=== PATIENT | male | born 1940 | race Asian ===

== ENCOUNTER 2025-03-16 10:48 | Inpatient (IN) | payer MEDICARE, BC ==
[~2025-03-16] VITALS: Ht 157.5 cm; Wt 66.4 kg
[~2025-03-16 10:48] MED LIST: AMI2 PO; APIX2.5T PO; ATOR10TA69 PO; CETI-259 PO; CLON0.122 PO; DES150 PO; ENTE0.5T11 MT; ENTE0.5T11 PO; FURO80TA3 PO; INSNOV SUBCUT; LEVO88TA7 PO; MELA5TAB3 PO; MIRT-89 PO; MONT-39 PO; MULT-1146 PO; OMEP20CA14 PO; PRED10TA PO; TAMS-54 PO; THIA100T72 PO
[2025-03-16 10:49] VITALS: O2SAT 98
[2025-03-16 11:31] LABS: BASOPHILS % 0.6 % (0.0-2.0); EOSINOPHILS % 1.9 % (0.0-5.0); HEMATOCRIT. 34.5 % (42.0-52.0); HEMOGLOBIN. 11.6 g/dL (14.0-18.0); LYMPHOCYTES % 37.2 % (20.0-50.0); MEAN PLATELET VOLUME 7.2 fl (7.4-10.4); MONOCYTES % 6.0 % (2.0-8.0); NEUTROPHILS % 54.3 % (40.0-76.0); PLATELET 165 x1000/uL (130-400); RED BLOOD CELL COUNT 3.56 mill/uL (4.7-6.1); RED CELL DISTRIBUTION WIDTH 13.6 % (11.6-14.6)
[2025-03-16] MEDS: METOPROLOL TARTRATE 25MG TABLET PO ONE (11:34)
[2025-03-16] MEDS: ASPIRIN 325MG EC TABLET PO ONE (11:34)
[2025-03-16] MEDS: NITROGLYCERIN OINT 1GM/INCH UDPKT TD ONE (11:35)
[2025-03-16 11:49] LABS: TROPONIN I HIGH SENSITIVITY 23 ng/L (3.0-53); UREA NITROGEN BLOOD 19 mg/dL (9-23)
[2025-03-16 11:55] LABS: CREATININE 2.5 mg/dL (0.6-1.3)
[2025-03-16] MEDS ORDERED: NA PHOS,M-B/NA PHOS,DI-BA ENEMA 118ML PR PRN (15:45)
[2025-03-16] MEDS ORDERED: ACETAMINOPHEN 325MG TABLET PO PRN (15:45)
[2025-03-16] MEDS ORDERED: DOCUSATE SODIUM 100MG CAPSULE PO PRN (15:45)
[2025-03-16] MEDS ORDERED: IPRATROPIUM/ALBUTEROL 0.5-3(2.5)MG/3ML NEB HHN PRN (15:45)
[2025-03-16] MEDS ORDERED: ONDANSETRON HCL 4MG/2ML INJ IV PRN (15:45)
[2025-03-16] MEDS ORDERED: GUAIFENESIN 200MG/10ML SUGAR FREE UDC PO PRN (15:45)
[2025-03-16] MEDS ORDERED: CLONIDINE 0.1MG TABLET PO PRN (15:45)
[2025-03-16] MEDS: FUROSEMIDE 40MG/4ML VIAL IVP SCH (16:40)
[2025-03-16] MEDS: ACETAMINOPHEN 325MG TABLET PO PRN (16:40)
[2025-03-16] MEDS: TAMSULOSIN HCL 0.4MG SR CAPSULE PO SCH (16:40)
[2025-03-16 16:48] LABS: BG BASE EXCESS -4.7 mmol/L (-2.0-3.0); BG CARBOXYHEMOGLOBIN 0.5 % (0.5-1.5); BG DEOXYHEMOGLOBIN 1.7 % (0.0-5.0); BG FLOW(L/min) 3.00 L/min; BG FRACTION INSPIRED OXYGEN 32; BG HCO3 ACT 15.0 mmol/L (21.0-28.0); BG METHEMOGLOBIN 0.3 % (0.5-1.5); BG OXYGEN SATURATION 98.3 % (94.0-98.0); BG OXYHEMOGLOBIN 97.5 % (94.0-98.0); BG PCO2 16.9 mmHg (35.0-48.0); BG PH 7.566 (7.350-7.450); BG PO2 107.3 mmHg (83.0-108.0); BG SAMPLE SITE RIGHT RADIAL; BG TOTAL HEMOGLOBIN 12.1 g/dL (13.5-17.5); BG VENT MODE NASAL CANNULA
[2025-03-16] MEDS: HYDROCODONE/ACETAMINOPHEN 5/325MG TABLET PO SCH (17:26)
[2025-03-16 17:29] LABS: FOLIC ACID (FOLATE) SERUM > 20.00 ng/mL (>5.38); VITAMIN B12 SERUM 1013 pg/mL (211-911)
[2025-03-16] MEDS ORDERED: NALOXONE HCL 0.4MG/ML VIAL IV PRN (17:30)
[2025-03-16] MEDS ORDERED: HYDROCODONE/ACETAMINOPHEN 5/325MG TABLET PO PRN (17:30)
[2025-03-16 17:45] VITALS: BP 108/60; PULSE 60; RESP 40; TEMP 36.1956
[2025-03-16 18:00] VITALS: BP 108/60; PULSE 58; RESP 30; TEMP 36.2; O2SAT 98
[2025-03-16 18:02] LABS: HEPATITIS A AB IGM NEGATIVE (Negative)
[2025-03-16 18:03] LABS: HEPATITIS B CORE AB IGM NEGATIVE (Negative); HEPATITIS C AB NON REACTIVE (Neg) (Negative)
[2025-03-16] MEDS: SULFAMETHOXAZOLE/TRIMETHOPRIM 800/160MG TABLET PO SCH (19:40)
[2025-03-16 20:00] VITALS: BP 111/70; PULSE 93; RESP 20; TEMP 36.6; O2SAT 98
[2025-03-16 20:59] LABS: CLARITY URINE CLEAR (CLEAR); COLOR URINE YELLOW (YELLOW); GLUCOSE URINE TRACE (NEGATIVE); KETONES URINE NEGATIVE (NEGATIVE); LEUKOCYTE ESTERASE URINE NEGATIVE (NEGATIVE); NITRITE URINE NEGATIVE (NEGATIVE); OCCULT BLOOD URINE NEGATIVE (NEGATIVE); PH URINE 8.5 (4.5-8.0); PROTEIN URINE 2+ (NEGATIVE); SPECIFIC GRAVITY URINE 1.009 (1.005-1.030); UROBILINOGEN URINE 0.2 E.U./dL (0.2-1.0)
[2025-03-16 21:18] LABS: BACTERIA URINE NONE SEEN; RBC URINE NONE SEEN /hpf (0-2); SQUAMOUS EPITHELIAL CELL URINE RARE /lpf (RARE/1+); WBC URINE NONE SEEN /hpf (0-2)
[2025-03-16 21:21] LABS: SODIUM URINE RANDOM 58 mEq/L
[2025-03-16 21:26] LABS: *AMPHETAMINES SCREEN URINE NEGATIVE (NEGATIVE); *BARBITURATES SCREEN URINE NEGATIVE (NEGATIVE); *BENZODIAZEPINES SCREEN URINE NEGATIVE (NEGATIVE); *COCAINE SCREEN URINE NEGATIVE (NEGATIVE)
[2025-03-16 21:27] LABS: CANNABINOID URINE SCREEN NEGATIVE (NEGATIVE); ECSTASY MDMA SCREEN URINE NEGATIVE (NEGATIVE); METHADONE URINE SCREEN NEGATIVE (NEGATIVE); OPIATES URINE SCREEN NEGATIVE (NEGATIVE); OSMOLALITY URINE 245 mOsm/kg (500-850); PHENCYCLIDINE URINE SCREEN NEGATIVE (NEGATIVE)
[2025-03-16] MEDS: MELATONIN 3MG TABLET PO SCH (21:54)
[2025-03-16] MEDS: TRAZODONE HCL 50MG TABLET PO SCH (21:55)
[2025-03-16] MEDS: APIXABAN 2.5 MG TABLET PO SCH (21:55)
[2025-03-16 22:24] LABS: TROPONIN I HIGH SENSITIVITY 2950 ng/L (3.0-53)
[2025-03-17] VITALS (12 sets, daily range): BP systolic 96–133; BP diastolic 60–74; PULSE 59–81; RESP 18–20; TEMP 36.3–37.2; O2SAT 96–100
[2025-03-17] MEDS: SODIUM CHLORIDE 0.9% 500 ML IV ONE (00:30)
[2025-03-17] MEDS: SODIUM CHLORIDE 0.9% 500 ML IV SCH (00:30)
[2025-03-17] MEDS: HALOPERIDOL LACTATE 5MG/ML VIAL IM NR (02:40)
[2025-03-17 06:24] LABS: BASOPHILS % 0.6 % (0.0-2.0); EOSINOPHILS % 1.9 % (0.0-5.0); HEMATOCRIT. 34.9 % (42.0-52.0); HEMOGLOBIN. 11.8 g/dL (14.0-18.0); LYMPHOCYTES % 23.0 % (20.0-50.0); MEAN PLATELET VOLUME 7.0 fl (7.4-10.4); MONOCYTES % 8.9 % (2.0-8.0); NEUTROPHILS % 65.6 % (40.0-76.0); PLATELET 180 x1000/uL (130-400); RED BLOOD CELL COUNT 3.57 mill/uL (4.7-6.1); RED CELL DISTRIBUTION WIDTH 13.6 % (11.6-14.6)
[2025-03-17 06:38] LABS: T4 FREE 1.52 ng/dL (0.89-1.76)
[2025-03-17 06:41] LABS: TRIGLYCERIDE 111.0 mg/dL (0-150); UREA NITROGEN BLOOD 26.0 mg/dL (9-23)
[2025-03-17 06:42] LABS: LDL CHOLESTEROL 106.0 mg/dL (5-100)
[2025-03-17 06:44] LABS: TROPONIN I HIGH SENSITIVITY 1894.0 ng/L (3.0-53)
[2025-03-17 06:45] LABS: CREATININE 3.5 mg/dL (0.6-1.3)
[2025-03-17] MEDS: LEVOTHYROXINE SODIUM 75MCG TABLET PO SCH (06:47)
[2025-03-17 06:58] LABS: ASPARTATE AMINOTRANSFERASE 28 IU/L (<34); BILIRUBIN DIRECT 0.2 mg/dL (<=3.0); BILIRUBIN TOTAL 0.5 mg/dL (0.1-1.0); PROTEIN TOTAL 6.8 g/dL (6.0-8.3)
[2025-03-17] MEDS ORDERED: AMLODIPINE 2.5MG TABLET PO SCH (09:00)
[2025-03-17] MEDS ORDERED: SULFAMETHOXAZOLE/TRIMETHOPRIM 400/80MG TAB PO SCH (09:00)
[2025-03-17] MEDS ORDERED: COLCHICINE 0.6MG TABLET PO SCH (09:00)
[2025-03-17] MEDS: PREDNISONE 5MG TABLET PO SCH (09:01)
[2025-03-17] MEDS: MULTIVITAMINS,THER W-MINERALS TABLET PO SCH (09:01)
[2025-03-17] MEDS: FISH OIL/OMEGA-3 FATTY ACIDS 1000MG CAPSULE PO SCH (09:01)
[2025-03-17 10:05] LABS: BG BASE EXCESS -9.1 mmol/L (-2.0-3.0); BG CARBOXYHEMOGLOBIN 0.7 % (0.5-1.5); BG DEOXYHEMOGLOBIN 1.5 % (0.0-5.0); BG FLOW(L/min) 4.00 L/min; BG FRACTION INSPIRED OXYGEN 36; BG HCO3 ACT 14.3 mmol/L (21.0-28.0); BG METHEMOGLOBIN 0.3 % (0.5-1.5); BG OXYGEN SATURATION 98.5 % (94.0-98.0); BG OXYHEMOGLOBIN 97.5 % (94.0-98.0); BG PCO2 24.6 mmHg (35.0-48.0); BG PH 7.381 (7.350-7.450); BG PO2 125.9 mmHg (83.0-108.0); BG SAMPLE SITE LEFT RADIAL; BG TOTAL HEMOGLOBIN 12.7 g/dL (13.5-17.5); BG VENT MODE NASAL CANNULA
[2025-03-17] MEDS: TAMSULOSIN HCL 0.4MG SR CAPSULE PO SCH (11:29)
[2025-03-17] MEDS: CEFTRIAXONE 1GM/50ML 50 ML IV SCH (19:51)
[2025-03-17] MEDS: MONTELUKAST SODIUM 10MG TABLET PO SCH (19:51)
[2025-03-17] MEDS: CLONAZEPAM 0.5MG TABLET PO PRN (20:48)
[2025-03-17] MEDS: LORAZEPAM 0.5MG TABLET PO PRN (22:28)
[2025-03-18] VITALS (12 sets, daily range): BP systolic 75–151; BP diastolic 42–76; PULSE 64–98; RESP 17–20; TEMP 36.114–36.6; O2SAT 97–100
[2025-03-18] MEDS: MIDODRINE HCL 2.5MG TABLET PO SCH ×2 (01:00→13:07)
[2025-03-18] MEDS: MIDODRINE HCL 5MG TABLET PO NR (02:14)
[2025-03-18] MEDS: LEVOTHYROXINE SODIUM 75MCG TABLET PO SCH (06:47)
[2025-03-18] MEDS: ASPIRIN 81MG TABLET PO SCH (09:15)
[2025-03-18] MEDS: TAMSULOSIN HCL 0.4MG SR CAPSULE PO SCH (17:53)
[2025-03-18 22:23] LABS: BASOPHILS % 0.7 % (0.0-2.0); EOSINOPHILS % 1.1 % (0.0-5.0); HEMATOCRIT. 28.4 % (42.0-52.0); HEMOGLOBIN. 9.6 g/dL (14.0-18.0); LYMPHOCYTES % 15.1 % (20.0-50.0); MEAN PLATELET VOLUME 7.5 fl (7.4-10.4); MONOCYTES % 9.1 % (2.0-8.0); NEUTROPHILS % 74.0 % (40.0-76.0); PLATELET 139 x1000/uL (130-400); RED BLOOD CELL COUNT 2.93 mill/uL (4.7-6.1); RED CELL DISTRIBUTION WIDTH 13.6 % (11.6-14.6)
[2025-03-18 22:48] LABS: CREATININE 3.2 mg/dL (0.6-1.3)
[2025-03-18 22:49] LABS: TRIGLYCERIDE 74.0 mg/dL (0-150); UREA NITROGEN BLOOD 28 mg/dL (9-23)
[2025-03-18 22:50] LABS: ASPARTATE AMINOTRANSFERASE 35 IU/L (<34); CREATINE KINASE MB FRACTION 6.8 ng/mL (0.5-3.6); LDL CHOLESTEROL 80.0 mg/dL (5-100)
[2025-03-18 22:51] LABS: BILIRUBIN DIRECT 0.1 mg/dL (<=3.0); BILIRUBIN TOTAL 0.3 mg/dL (0.1-1.0); PHOSPHORUS 3.7 mg/dL (2.5-4.9); PROTEIN TOTAL 5.8 g/dL (6.0-8.3)
[2025-03-18 22:54] LABS: T4 FREE 1.35 ng/dL (0.89-1.76)
[2025-03-18 23:06] LABS: TROPONIN I HIGH SENSITIVITY 806.0 ng/L (3.0-53)
[2025-03-19] VITALS (8 sets, daily range): BP systolic 88–147; BP diastolic 44–78; PULSE 61–80; RESP 16–21; TEMP 36.3–36.6; O2SAT 95–99
[2025-03-19 07:29] LABS: CREATINE KINASE MB FRACTION 6.6 ng/mL (0.5-3.6)
[2025-03-19 08:44] LABS: TROPONIN I HIGH SENSITIVITY 717.0 ng/L (3.0-53)
[2025-03-19 09:10] LABS: HBSAG SCREEN Confirm. indicated (Negative)
[2025-03-19] MEDS: LEVOTHYROXINE SODIUM 50MCG TABLET PO SCH (10:02)
[2025-03-19 11:24] LABS: HBSAG CONFIRMATION Positive (.)
[2025-03-19 13:48] LABS: CREATININE 3.6 mg/dL (0.6-1.3)
[2025-03-19 13:49] LABS: UREA NITROGEN BLOOD 22 mg/dL (9-23)
[2025-03-19 13:51] LABS: PHOSPHORUS 3.4 mg/dL (2.5-4.9)
[2025-03-19] MEDS ORDERED: METOPROLOL TARTRATE 5MG/5ML VIAL IV PRN (16:30)
[2025-03-19 17:42] LABS: BASOPHILS % 0.8 % (0.0-2.0); EOSINOPHILS % 1.8 % (0.0-5.0); HEMATOCRIT. 29.6 % (42.0-52.0); HEMOGLOBIN. 9.6 g/dL (14.0-18.0); LYMPHOCYTES % 10.1 % (20.0-50.0); MEAN PLATELET VOLUME 7.5 fl (7.4-10.4); MONOCYTES % 4.5 % (2.0-8.0); NEUTROPHILS % 82.8 % (40.0-76.0); PLATELET 134 x1000/uL (130-400); RED BLOOD CELL COUNT 2.98 mill/uL (4.7-6.1); RED CELL DISTRIBUTION WIDTH 14.2 % (11.6-14.6)
[2025-03-20] VITALS (7 sets, daily range): BP systolic 101–154; BP diastolic 50–71; PULSE 55–82; RESP 14–20; TEMP 36.1–37.2; O2SAT 97–99
[2025-03-20 08:37] LABS: CREATININE 4.5 mg/dL (0.6-1.3)
[2025-03-20 08:38] LABS: UREA NITROGEN BLOOD 33 mg/dL (9-23)
[2025-03-20 08:40] LABS: PHOSPHORUS 3.6 mg/dL (2.5-4.9)
[2025-03-20 08:42] LABS: BASOPHILS % 1.0 % (0.0-2.0); EOSINOPHILS % 10.3 % (0.0-5.0); HEMATOCRIT. 30.9 % (42.0-52.0); HEMOGLOBIN. 10.2 g/dL (14.0-18.0); LYMPHOCYTES % 16.0 % (20.0-50.0); MEAN PLATELET VOLUME 7.3 fl (7.4-10.4); MONOCYTES % 8.4 % (2.0-8.0); NEUTROPHILS % 64.3 % (40.0-76.0); PLATELET 138 x1000/uL (130-400); RED BLOOD CELL COUNT 3.07 mill/uL (4.7-6.1); RED CELL DISTRIBUTION WIDTH 13.9 % (11.6-14.6)
[2025-03-20] MEDS ORDERED: ENTECAVIR 0.5 MG PO SCH (09:00)
[2025-03-20] MEDS ORDERED: LIDOCAINE HCL 1% 10 MG/ML 10ML VIAL ONE (11:08)
[2025-03-20] MEDS ORDERED: IOHEXOL-350 100 ML BOTTLE ONE (12:08)
[2025-03-20] MEDS: NITROGLYCERIN SPRAY/4.9GM CAN TL ONE (12:20)
[2025-03-20] MEDS ORDERED: NITROGLYCERIN SPRAY/4.9GM CAN TL NR (12:45)
[2025-03-21] VITALS (9 sets, daily range): BP systolic 102–154; BP diastolic 49–74; PULSE 59–104; RESP 18–20; TEMP 36–37.1; O2SAT 97–99
[2025-03-21] MEDS: MIDODRINE HCL 5MG TABLET PO SCH (00:08)
[2025-03-21] MEDS: OLANZAPINE 10 MG/VIAL IM NR (03:15)
[2025-03-21] MEDS: ENOXAPARIN 60MG/0.6ML SYR SUBCUT SCH (21:06)
[2025-03-22] VITALS (7 sets, daily range): BP systolic 114–146; BP diastolic 55–79; PULSE 57–74; RESP 18–20; TEMP 36.3–36.7; O2SAT 97–100
[2025-03-22] MEDS ORDERED: APIX2.5T PO (12:07)
[2025-03-22] MEDS ORDERED: MIDO2.5T3 PO (12:07)
[2025-03-22] MEDS ORDERED: OMEP20CA14 PO (12:07)
[2025-03-22] MEDS ORDERED: ATOR10TA69 PO (12:07)
[2025-03-22] MEDS ORDERED: ASPI-1160 PO (12:07)
[2025-03-22 12:51] LABS: BASOPHILS % 0.6 % (0.0-2.0); EOSINOPHILS % 12.1 % (0.0-5.0); HEMATOCRIT. 27.7 % (42.0-52.0); HEMOGLOBIN. 9.2 g/dL (14.0-18.0); LYMPHOCYTES % 15.0 % (20.0-50.0); MEAN PLATELET VOLUME 7.2 fl (7.4-10.4); MONOCYTES % 11.3 % (2.0-8.0); NEUTROPHILS % 61.0 % (40.0-76.0); PLATELET 123 x1000/uL (130-400); RED BLOOD CELL COUNT 2.78 mill/uL (4.7-6.1); RED CELL DISTRIBUTION WIDTH 13.8 % (11.6-14.6)
[2025-03-22 14:00] LABS: CREATININE 3.7 mg/dL (0.6-1.3); UREA NITROGEN BLOOD 34 mg/dL (9-23)
[2025-03-22 14:02] LABS: ASPARTATE AMINOTRANSFERASE 21 IU/L (<34); PHOSPHORUS 2.8 mg/dL (2.5-4.9)
[2025-03-22 14:03] LABS: BILIRUBIN TOTAL 0.3 mg/dL (0.1-1.0); PROTEIN TOTAL 5.5 g/dL (6.0-8.3)
[2025-03-22 14:21] LABS: TROPONIN I HIGH SENSITIVITY 574 ng/L (3.0-53)
[2025-03-22] MEDS ORDERED: HYDR50TA55 MT (15:46)
[2025-03-22] MEDS: CLONAZEPAM 0.5MG TABLET PO NR (23:09)
[2025-03-23 04:00] VITALS: RESP 20; O2SAT 99
[2025-03-23 08:00] VITALS: BP 139/82; PULSE 94; RESP 18; TEMP 36.4; O2SAT 97
[2025-03-23] MEDS ORDERED: GUAIFENESIN 200MG/10ML SUGAR FREE UDC PO PRN (11:00)
[2025-03-23 12:00] VITALS: BP 158/64; PULSE 65; RESP 18; TEMP 36.7; O2SAT 93
[2025-03-23] MEDS: LORATADINE 10MG TABLET PO SCH (12:00)
== END 2025-03-23 14:55 | disposition hospice, home (50) | DRG 871 ==
LOC: ER 10:48 → EDBEDREQ 11:14 → EDBEDREQTM 15:04 → ENRESERV 15:09 → 7WST 17:41
PROVIDERS: ADMIT Hospitalist; ATTEND Hospitalist
PROC: 5A1D70Z Performance of Urinary Filtration, Intermittent, Less than 6 Hours Per Day (ICD-10-PCS; 2025-03-17)
PROC: 5A1D70Z Performance of Urinary Filtration, Intermittent, Less than 6 Hours Per Day (ICD-10-PCS; 2025-03-19)
PROC: 05HM33Z Insertion of Infusion Device into Right Internal Jugular Vein, Percutaneous Approach (ICD-10-PCS; principal; 2025-03-20)
PROC: B543ZZA Ultrasonography of Right Jugular Veins, Guidance (ICD-10-PCS; 2025-03-20)
PROC: 5A1D70Z Performance of Urinary Filtration, Intermittent, Less than 6 Hours Per Day (ICD-10-PCS; 2025-03-20)
DX: A41.9 Sepsis, unspecified organism (principal); G82.50 Quadriplegia, unspecified; G93.41 Metabolic encephalopathy; I50.33 Acute on chronic diastolic (congestive) heart failure; N18.6 End stage renal disease; J96.01 Acute respiratory failure with hypoxia; I21.A1 Myocardial infarction type 2; E87.4 Mixed disorder of acid-base balance; B18.1 Chronic viral hepatitis B without delta-agent; I13.2 Hypertensive heart and chronic kidney disease with heart failure and with stage 5 chronic kidney disease, or end stage renal disease; K56.600 Partial intestinal obstruction, unspecified as to cause; E22.2 Syndrome of inappropriate secretion of antidiuretic hormone; J91.8 Pleural effusion in other conditions classified elsewhere; T46.2X5A Adverse effect of other antidysrhythmic drugs, initial encounter; E03.9 Hypothyroidism, unspecified; D63.1 Anemia in chronic kidney disease; R35.0 Frequency of micturition; I48.0 Paroxysmal atrial fibrillation; M10.9 Gout, unspecified; R53.81 Other malaise; R26.9 Unspecified abnormalities of gait and mobility; D69.6 Thrombocytopenia, unspecified; Z66 Do not resuscitate; E11.22 Type 2 diabetes mellitus with diabetic chronic kidney disease; E78.00 Pure hypercholesterolemia, unspecified; F03.90 Unspecified dementia, unspecified severity, without behavioral disturbance, psychotic disturbance, mood disturbance, and anxiety; I25.10 Atherosclerotic heart disease of native coronary artery without angina pectoris; Z51.5 Encounter for palliative care; I34.0 Nonrheumatic mitral (valve) insufficiency; I35.1 Nonrheumatic aortic (valve) insufficiency; I49.3 Ventricular premature depolarization; J44.9 Chronic obstructive pulmonary disease, unspecified; K21.9 Gastro-esophageal reflux disease without esophagitis; J70.3 Chronic drug-induced interstitial lung disorders; K57.30 Diverticulosis of large intestine without perforation or abscess without bleeding; N40.0 Benign prostatic hyperplasia without lower urinary tract symptoms; Z79.01 Long term (current) use of anticoagulants; Z79.899 Other long term (current) drug therapy; Z80.3 Family history of malignant neoplasm of breast; Z85.038 Personal history of other malignant neoplasm of large intestine; Z86.718 Personal history of other venous thrombosis and embolism; Z86.73 Personal history of transient ischemic attack (TIA), and cerebral infarction without residual deficits; Z87.11 Personal history of peptic ulcer disease; Z87.891 Personal history of nicotine dependence; Z88.1 Allergy status to other antibiotic agents; Z90.49 Acquired absence of other specified parts of digestive tract; Z91.010 Allergy to peanuts; Z99.2 Dependence on renal dialysis; Y92.89 Other specified places as the place of occurrence of the external cause
CPT/HCPCS: 36415; 36573; 36600; 71045; 74018; 75571; 76604; 76857; 78580; 80048; 80053; 80061; 80076; 80305; 81003; 82140; 82270; 82375; 82550; 82553; 82607; 82728; 82746; 82805; 83036; 83540; 83550; 83605; 83735; 83880; 83930; 83935; 84100; 84145; 84300; 84439; 84443; 84484; 85025; 85379; 86705; 86709; 87340; 90935; 93005; 93306; 93970; 97162; 97166; 97530; 99291; A4606; C1725; J0696; J1630; J1650; J1938; J2003; J3490; J7512; Q9967